=== PATIENT | male | born 1940 | race Caucasian/White ===

== ENCOUNTER → 2017-07-01 09:38 | Outpatient (CLI) | payer MEDICARE, SELFPAY ==
[2017-07-01 10:18] LABS: Basophils % 0.4 % (0.1-2.0); Eosinophils % 0.9 % (0.1-12.0); Hematocrit 45.9 % (42.0-52.0); Hemoglobin 15.4 g/dL (14.1-18.0); Lymphocytes # 1.2 K/mm3 (0.7-4.5); Lymphocytes % 27.8 K/mm3 (10-50); Mean Corpuscular HGB Conc 33.6 g/dL (31.8-35.4); Mean Corpuscular Hemoglobin 31.6 pg (27.0-31.2); Mean Corpuscular Volume 94.1 fl (80-94); Mean Platelet Volume 7.4 fl (7.4-10.4); Monocytes # 0.3 K/mm3 (0.1-1.0); Monocytes % 7.2 % (1.7-9.3); Neutrophils # 2.7 K/mm3 (1.8-7.8); Neutrophils % 63.7 % (37.0-80.0); Platelet Count 131 K/mm3 (142-424); Red Blood Count 4.88 M/mm3 (4.60-6.20); White Blood Count 4.2 K/mm3 (4.8-10.8)
[2017-07-01 11:46] LABS: Alanine Aminotransferase 25 U/L (12-78); Albumin Level 3.8 gm/dL (3.4-5.0); Albumin/Globulin Ratio 1.2 (1.1-1.8); Alkaline Phosphatase 88 U/L (46-116); Anion Gap 1.2 mEq/L (5-15); Bilirubin,Total 0.5 mg/dL (0.2-1.0); Blood Urea Nitrogen 22 mg/dL (7-18); Calcium 8.8 mg/dL (8.5-10.1); Carbon Dioxide 27 mmol/L (21.0-32.0); Chloride 113 mmol/L (98-107); Estimated Glomerular Filt Rate 65 ml/min (>60); GFR (African American) 79 ML/MIN (>60); Globulin 3.2 gm/dl (1.3-3.2); Glucose 86 mg/dL (74-106); Sodium 137 mmol/L (136-145)
[2017-07-01 11:51] LABS: Aspartate Amino Transferase 17 U/L (15-37); Potassium 4.2 mmoL/L (3.5-5.1)
== END ==
PROVIDERS: PCP Internal Medicine; Visit Provider Internal Medicine
DX: C43.9 Malignant melanoma of skin, unspecified (principal)
CPT/HCPCS: 36415; 80053; 85025

== ENCOUNTER → 2017-08-20 11:56 | Outpatient (CLI) | payer MEDICARE, SELFPAY ==
[2017-08-21 15:36] LABS: PSA, Free 1.05 ng/mL; Prostate Specific Ag 7.3 ng/mL (0.0-4.0)
== END ==
PROVIDERS: PCP Family Medicine; Visit Provider Urology
DX: R97.20 Elevated prostate specific antigen [PSA] (principal)
CPT/HCPCS: 36415; 84153; 84154

== ENCOUNTER → 2017-08-26 12:45 | Outpatient (CLI) | payer MEDICARE, SELFPAY ==
[2017-08-26 13:10] LABS: Basophils % 0.4 % (0.1-2.0); Eosinophils % 0.7 % (0.1-12.0); Hemoglobin 14.2 g/dL (14.1-18.0); Lymphocytes # 1.4 K/mm3 (0.7-4.5); Lymphocytes % 34.2 K/mm3 (10-50); Mean Corpuscular HGB Conc 32.9 g/dL (31.8-35.4); Mean Corpuscular Hemoglobin 31.3 pg (27.0-31.2); Mean Corpuscular Volume 95.2 fl (80-94); Mean Platelet Volume 7.7 fl (7.4-10.4); Monocytes # 0.3 K/mm3 (0.1-1.0); Monocytes % 6.9 % (1.7-9.3); Neutrophils # 2.3 K/mm3 (1.8-7.8); Neutrophils % 57.7 % (37.0-80.0); Platelet Count 144 K/mm3 (142-424); Red Blood Count 4.52 M/mm3 (4.60-6.20); Red Cell Distribution Width 14.5 % (11.5-17.5)
[2017-08-26 13:31] LABS: Alanine Aminotransferase 27 U/L (12-78); Albumin Level 3.6 gm/dL (3.4-5.0); Alkaline Phosphatase 125 U/L (46-116); Anion Gap 9.5 mEq/L (5-15); Aspartate Amino Transferase 22 U/L (15-37); Bilirubin,Total 0.4 mg/dL (0.2-1.0); Blood Urea Nitrogen 19 mg/dL (7-18); Calcium 8.7 mg/dL (8.5-10.1); Carbon Dioxide 28 mmol/L (21.0-32.0); Chloride 107 mmol/L (98-107); Creatinine,Serum 0.94 mg/dL (0.70-1.30); Estimated Glomerular Filt Rate 78 ml/min (>60); GFR (African American) 95 ML/MIN (>60); Globulin 3.6 gm/dl (1.3-3.2); Glucose 110 mg/dL (74-106); Potassium 4.5 mmoL/L (3.5-5.1); Sodium 140 mmol/L (136-145); Total Protein,Serum 7.2 gm/dL (6.4-8.2)
== END ==
PROVIDERS: Visit Provider Nurse Practitioner
DX: C43.9 Malignant melanoma of skin, unspecified (principal)
CPT/HCPCS: 36415; 80053; 85025

== ENCOUNTER → 2017-09-16 09:25 | Outpatient (CLI) | payer MEDICARE, SELFPAY ==
[2017-09-16 10:12] LABS: Alanine Aminotransferase 26 U/L (12-78); Albumin Level 3.5 gm/dL (3.4-5.0); Alkaline Phosphatase 116 U/L (46-116); Anion Gap 10.4 mEq/L (5-15); Aspartate Amino Transferase 25 U/L (15-37); Bilirubin,Total 0.4 mg/dL (0.2-1.0); Blood Urea Nitrogen 19 mg/dL (7-18); Calcium 9.2 mg/dL (8.5-10.1); Carbon Dioxide 28 mmol/L (21.0-32.0); Chloride 111 mmol/L (98-107); Creatinine,Serum 0.99 mg/dL (0.70-1.30); Estimated Glomerular Filt Rate 74 ml/min (>60); GFR (African American) 89 ML/MIN (>60); Globulin 3.6 gm/dl (1.3-3.2); Glucose 99 mg/dL (74-106); Potassium 4.4 mmoL/L (3.5-5.1); Sodium 145 mmol/L (136-145); Total Protein,Serum 7.1 gm/dL (6.4-8.2)
[2017-09-16 10:46] LABS: Basophils % 0.1 % (0.1-2.0); Eosinophils % 0.8 % (0.1-12.0); Hematocrit 40.9 % (42.0-52.0); Hemoglobin 13.4 g/dL (14.1-18.0); Lymphocytes # 0.9 K/mm3 (0.7-4.5); Lymphocytes % 29.4 K/mm3 (10-50); Mean Corpuscular HGB Conc 32.8 g/dL (31.8-35.4); Mean Corpuscular Hemoglobin 31.9 pg (27.0-31.2); Mean Corpuscular Volume 97.3 fl (80-94); Mean Platelet Volume 7.5 fl (7.4-10.4); Monocytes # 0.2 K/mm3 (0.1-1.0); Monocytes % 7.5 % (1.7-9.3); Neutrophils # 1.9 K/mm3 (1.8-7.8); Neutrophils % 62.2 % (37.0-80.0); Platelet Count 116 K/mm3 (142-424); Red Blood Count 4.21 M/mm3 (4.60-6.20); Red Cell Distribution Width 14.7 % (11.5-17.5); White Blood Count 3.1 K/mm3 (4.8-10.8)
== END ==
PROVIDERS: Visit Provider Internal Medicine
DX: C43.9 Malignant melanoma of skin, unspecified (principal)
CPT/HCPCS: 36415; 80053; 85025

== ENCOUNTER → 2017-10-12 09:10 | Outpatient (CLI) | payer MEDICARE, SELFPAY ==
[2017-10-12 09:39] LABS: Basophils % 0.1 % (0.1-2.0); Eosinophils % 0.6 % (0.1-12.0); Hematocrit 40.3 % (42.0-52.0); Hemoglobin 13.4 g/dL (14.1-18.0); Lymphocytes # 0.9 K/mm3 (0.7-4.5); Lymphocytes % 35.6 K/mm3 (10-50); Mean Corpuscular HGB Conc 33.3 g/dL (31.8-35.4); Mean Corpuscular Hemoglobin 31.6 pg (27.0-31.2); Mean Corpuscular Volume 94.8 fl (80-94); Mean Platelet Volume 7.6 fl (7.4-10.4); Monocytes # 0.2 K/mm3 (0.1-1.0); Monocytes % 10.1 % (1.7-9.3); Neutrophils # 1.3 K/mm3 (1.8-7.8); Neutrophils % 53.5 % (37.0-80.0); Platelet Count 90 K/mm3 (142-424); Red Blood Count 4.25 M/mm3 (4.60-6.20); Red Cell Distribution Width 14.5 % (11.5-17.5); White Blood Count 2.4 K/mm3 (4.8-10.8)
[2017-10-12 10:37] LABS: Alanine Aminotransferase 28 U/L (12-78); Albumin Level 3.7 gm/dL (3.4-5.0); Albumin/Globulin Ratio 1.2 (1.1-1.8); Alkaline Phosphatase 123 U/L (46-116); Anion Gap 11.3 mEq/L (5-15); Aspartate Amino Transferase 28 U/L (15-37); Bilirubin,Total 0.6 mg/dL (0.2-1.0); Blood Urea Nitrogen 19 mg/dL (7-18); Carbon Dioxide 28 mmol/L (21.0-32.0); Chloride 109 mmol/L (98-107); Creatinine,Serum 1.01 mg/dL (0.70-1.30); Estimated Glomerular Filt Rate 72 ml/min (>60); GFR (African American) 87 ML/MIN (>60); Globulin 3.1 gm/dl (1.3-3.2); Glucose 99 mg/dL (74-106); Potassium 4.3 mmoL/L (3.5-5.1); Sodium 144 mmol/L (136-145); Total Protein,Serum 6.8 gm/dL (6.4-8.2)
== END ==
PROVIDERS: Visit Provider Internal Medicine
DX: C43.9 Malignant melanoma of skin, unspecified (principal)
CPT/HCPCS: 36415; 80053; 85025

== ENCOUNTER → 2017-11-16 09:49 | Outpatient (CLI) | payer MEDICARE, SELFPAY ==
[2017-11-16 10:36] LABS: Basophils % 0.4 % (0.1-2.0); Hematocrit 42.1 % (42.0-52.0); Hemoglobin 13.6 g/dL (14.1-18.0); Lymphocytes # 1.2 K/mm3 (0.7-4.5); Lymphocytes % 34.9 K/mm3 (10-50); Mean Corpuscular HGB Conc 32.3 g/dL (31.8-35.4); Mean Corpuscular Hemoglobin 30.4 pg (27.0-31.2); Mean Corpuscular Volume 94.3 fl (80-94); Mean Platelet Volume 7.3 fl (7.4-10.4); Monocytes # 0.3 K/mm3 (0.1-1.0); Monocytes % 8.3 % (1.7-9.3); Neutrophils # 1.9 K/mm3 (1.8-7.8); Neutrophils % 55.5 % (37.0-80.0); Platelet Count 127 K/mm3 (142-424); Red Blood Count 4.46 M/mm3 (4.60-6.20); Red Cell Distribution Width 14.3 % (11.5-17.5); White Blood Count 3.5 K/mm3 (4.8-10.8)
[2017-11-16 14:00] LABS: Alanine Aminotransferase 24 U/L (12-78); Albumin Level 3.7 gm/dL (3.4-5.0); Albumin/Globulin Ratio 1.2 (1.1-1.8); Alkaline Phosphatase 135 U/L (46-116); Aspartate Amino Transferase 26 U/L (15-37); Bilirubin,Total 0.6 mg/dL (0.2-1.0); Blood Urea Nitrogen 26 mg/dL (7-18); Calcium 9.3 mg/dL (8.5-10.1); Carbon Dioxide 30 mmol/L (21.0-32.0); Chloride 107 mmol/L (98-107); Creatinine,Serum 1.06 mg/dL (0.70-1.30); Estimated Glomerular Filt Rate 68 ml/min (>60); GFR (African American) 82 ML/MIN (>60); Globulin 3.1 gm/dl (1.3-3.2); Glucose 90 mg/dL (74-106); Sodium 140 mmol/L (136-145); Total Protein,Serum 6.8 gm/dL (6.4-8.2)
== END ==
PROVIDERS: Visit Provider Internal Medicine
DX: C43.9 Malignant melanoma of skin, unspecified (principal)
CPT/HCPCS: 36415; 80053; 85025

== ENCOUNTER 2018-02-25 22:50 | Observation (INO) ==
[2018-02-25 23:38] LABS: Basophils % 0.2 % (0.1-2.0); Eosinophils % 0.7 % (0.1-12.0); Hematocrit 42.1 % (42.0-52.0); Lymphocytes # 0.8 K/mm3 (0.7-4.5); Lymphocytes % 20.2 K/mm3 (10-50); Mean Corpuscular HGB Conc 33.3 g/dL (31.8-35.4); Mean Corpuscular Hemoglobin 32.3 pg (27.0-31.2); Mean Corpuscular Volume 96.9 fl (80-94); Mean Platelet Volume 6.8 fl (7.4-10.4); Monocytes # 0.2 K/mm3 (0.1-1.0); Monocytes % 5.4 % (1.7-9.3); Neutrophils # 2.9 K/mm3 (1.8-7.8); Neutrophils % 73.6 % (37.0-80.0); Platelet Count 101 K/mm3 (142-424); Red Blood Count 4.34 M/mm3 (4.60-6.20); Red Cell Distribution Width 14.1 % (11.5-17.5); White Blood Count 3.9 K/mm3 (4.8-10.8)
[2018-02-25 23:47] LABS: Albumin Level 3.7 gm/dL (3.4-5.0); Albumin/Globulin Ratio 1.2 (1.1-1.8); Anion Gap 7.7 mEq/L (5-15); Bilirubin,Total 1.2 mg/dL (0.2-1.0); Potassium 3.7 mmoL/L (3.5-5.1); Total Protein,Serum 6.7 gm/dL (6.4-8.2)
--- NOTE | 2018-02-26 00:47 | Emergency Department Note ---
ED Disposition Clinical Impression: Metastatic melanoma, Brain metastases Disposition: Admitted as Observation Condition on Discharge: Serious Instructions: DI for Altered Mental Status Referrals: Sergo Ridley MD [Primary Care Provider] - - Critical Care Critical Care Time: No Attestation: On 02/25/18, the high probability of a clinically significant, sudden or life threatening deterioration of the following system(s) required my full and direct attention, intervention and personal management. The time I documented below is in addition to time spent performing reported procedures but includes the following listed in this critical care notation. Medical Decision Making - Medical Records Medical records reviewed: Yes: I reviewed the patient's medical records. - Ronnie Inquiry Pt receiving controlled substance: No Vital Signs: 02/25/18 22:52 Temperature 97.7 F Temperature Source Oral Pulse Rate [Right Radial] 52 L Respiratory Rate 15 Blood Pressure [Right Arm] 129/71 Blood Pressure Mean [Right Arm] 90 Blood Pressure Source [Right Arm] Automatic Cuff Blood Pressure Position [Right Arm] Sitting 02 Sat by Pulse Oximetry 95 Oxygen Delivery Method Room Air - Lab Data Lab results reviewed: Yes: I reviewed the patient's lab results. Lab Results 02/25/18 23:25: WBC 3.9 L, RBC 4.34 L, Hgb 14.0 L, Hct 42.1, MCV 96.9 H, MCH 32.3 H, MCHC 33.3, RDW 14.1, Plt Count 101 L, MPV 6.8 L, Neut % (Auto) 73.6, Lymph % (Auto) 20.2, [place] % (Auto) 5.4, Eos % (Auto) 0.7, Baso % (Auto) 0.2, Neut # (Auto) 2.9, Lymph # (Auto) 0.8, [place] # (Auto) 0.2, Eos # (Auto) 0.0, Baso # (Auto) 0.0 02/25/18 23:25: Sodium 142, Potassium 3.7, Chloride 108 H, Carbon Dioxide 30, Anion Gap 7.7, BUN 15, Creatinine 0.88, Estimated Creat Clear 68, Estimated GFR 84, Est GFR ( Amer) 102, Glucose 111 H, Calcium 9.0, Total Bilirubin 1.2 H, AST 32, ALT 35, Alkaline Phosphatase 101, Total Protein 6.7, Albumin 3.7, Globulin 3.0, Albumin/Globulin Ratio 1.2, Amylase 32, Lipase 74 Result diagrams: 02/25/18 23:25 02/25/18 23:25 Orders (Tests/Meds): ED MEDICATIONS Generic Name Dose Route Start Last Admin Trade Name Freq PRN Reason Stop Dose Admin Lorazepam 1 mg 02/26/18 01:06 02/26/18 01:12 Ativan 2mg/Ml Vial IV 03/28/18 01:05 1 mg Q4HP PRN Administration Agitation Discontinued Medications Generic Name Dose Route Start Last Admin Trade Name Freq PRN Reason Stop Dose Admin Dexamethasone Sodium Phosphate 10 mg 02/26/18 01:06 02/26/18 01:12 Decadron 4mg/Ml 5ml Mdv IV 02/26/18 01:07 10 mg ONCE ONE Administration Promethazine HCl 12.5 mg 02/25/18 23:12 02/25/18 23:26 Phenergan 25mg/Ml 1ml Vial IV 02/25/18 23:13 12.5 mg ONCE ONE Administration Sodium Chloride 25 ml 02/25/18 23:12 02/25/18 23:25 Sod Chlor 0.9% 25ml Bag IV 02/25/18 23:13 25 ml ONCE ONE Administration ORDERS Category Date Time Status CT head/brain wo con Stat Cat Scan 02/25/18 23:13 Taken XR chest AP Stat Exams 02/25/18 23:12 Taken XR pelvis 1-2V Stat Exams 02/25/18 23:13 Taken EKG Request [ECG Request by /[place]] Stat Y 02/25/18 23:38 Ordered - Radiology Data #1 Image(s): Chest, Pelvis Image Reviewed: Yes I reviewed the patient's radiology image Preliminary Findings: No Fracture Seen - CT Data CT Scan: Head Time Received: 01:[address] Reviewed: Yes: I have viewed the radiologist's interpretation Preliminary Findings: Abnormal Findings Narrative: bleeding mult mets with vagogenic changes in brain - ECG Data Tracing #1 I reviewed this ECG and interpreted as documented below: Normal Sinus Rhythm: Yes Ischemic changes: non-specific ST-T wave changes Altered Mental Status HPI - General Chief Complaint: Altered Mental Status Stated Complaint: nausea/weakness Time Seen by Provider: 02/25/18 23:15 Mode of Arrival: EMS Source of Information: Patient, Relative, EMS, Medical Record Limitations: No Limitations Description of Symptoms (Recalled from ER Triage Doc. by RN): Family called EMS r/t increased confusion, and falls. EMS reports pt was here last week and possible diagnosis of brain cancer. Pt complaining of nausea and abdominal pain. - History of Present Illness HPI narrative: pt with recent dx of metastatic melanoma to brain with progressive sx with inc confusions and dec ambulation with falls over the last 24 hrs - family and pt wish comfort care at this time and possible hospice consult complaint: altered mental status Onset (ago): day(s) Timing confirmed by: family member Severity: severe Consistency of symptoms: getting worse Context: cancer Associated symptoms: denies other symptoms - Related Data Home Medications Medication Instructions Recorded Confirmed tamsulosin 0.4 mg capsule 0.4 mg PO DAILY 06/15/17 02/22/18 dabrafenib 75 mg capsule 75 mg PO DAILY cap 08/20/17 02/22/18 trametinib 2 mg tablet 2 mg PO DAILY 08/20/17 02/22/18 Promethazine HCl [Phenergan 25mg 25 mg PO NEEDED PRN 02/25/18 02/25/18 tab] Tramadol HCl [Ultram 50mg 50 mg PO NEEDED PRN 02/25/18 02/25/18 tablet] Allergies Allergy/AdvReac Type Severity Reaction Status Date / Time No Known Allergies Allergy Verified 12/30/17 09:19 [facility] History I have reviewed the patient's past medical history: Yes Medical History: Reports:: Cancer (leukemia, skin ca), Depression Denies:: Diabetes Mellitus Type 1, Diabetes Mellitus Type 2, MRSA Other Medical History: Reports: Chemotherapy Other Surgeries: Yes: Hernia Repair, Other Amputation: No Fractures: No - Social History Smoking Status: Current every day smoker Tobacco Type: cigarettes # Packs/Day (cigarettes): 1 Alcohol Intake: never Substance Use Type: denies use Occupational Status: retired Housing: house Household Members: family - Psychiatric History Expresses thoughts of harming self/others: None Suicide Plan Description: No Plan Pschychiatric History:: Reports:: Depression Family Hx:: No significant family history ROS Obtained: Yes All systems reviewed & no additional complaints - Constitutional Constitutional: Denies fever(s), Reports frequent falls - Eyes Eyes: Denies change in vision - ENT Ears, Nose, Mouth, and Throat: Denies sore throat - Cardiovascular Cardiovascular: Denies chest pain at rest - Respiratory Respiratory: No cough - Gastrointestinal Gastrointestingal: Denies: abdominal pain - Genitourinary Male Genitourinary: Denies hematuria - Musculoskeletal Musculoskeletal: Denies joint pain - Integumentary/Breasts Skin/Breast: Denies rash - Neurologic Neurologic: Reports confusion, Reports frequent falls, Denies seizure-like activity Physical Exam - General General appearance: in no apparent distress - Head Head exam: normocephalic - Eye Eye exam: Present: PERRL, EOMI. Absent: scleral icterus - ENT ENT exam: Present: mucous membranes dry - Neck Neck exam: Present: trachea midline - Respiratory Respiratory exam: Absent: respiratory distress - Cardiovascular Cardiovascular exam: Present: regular rate - Abdominal Exam Abdominal exam: Present: soft - Extremities Exam Extremities exam: Present: full ROM - Neurological Exam Neurological exam: Present: CN II-XII intact, other (awake and oriented x 2 with agitated confusion ) - Psychiatric Psychiatric exam: Present: agitated - Skin Skin exam: Absent: rash
--- NOTE | 2018-02-26 05:57 | History & Physical Report ---
*Admission Date: 02/26/18 *Chief complaint: Confusion, weakness, falls *History of present illness: 77-year-old male diagnosed with metastatic melanoma approximately 1 year ago and has been undergoing treatment through local oncology presented to the emergency department for the second time this week after experiencing additional falls at home with new onset of increased confusion. Family felt like they were unable to care for the patient. At his ER visit earlier in the week CT scan showed new metastatic disease in the brain. CT scan showed multiple brain metastases. On return to the emergency department yesterday evening repeat scan once again showed the meds but this time with vasogenic changes consistent with edema and/or hemorrhage. Patient was unable to be cared for by family. Family had contacted my office yesterday and a hospice referral had been made. Family is not present at bedside this morning so I do not know if they were ever contacted by hospice. Patient has been admitted for palliative care and hospice consultation. Patient himself is able to indicate he has some pain in his tailbone. He has been combative throughout the night and has required restraints. [facility] History I have reviewed the patient's past medical history: Yes Medical History: Reports:: Cancer (leukemia, metastatic melanoma), Depression Denies:: Diabetes Mellitus Type 1, Diabetes Mellitus Type 2, MRSA Other Medical History: Reports: Chemotherapy Other Surgeries: Yes: Hernia Repair, Other Amputation: No Fractures: No - *Social History Smoking Status: Current every day smoker Tobacco Type: cigarettes # Packs/Day (cigarettes): 1 Alcohol Intake: never Substance Use Type: denies use Occupational Status: retired Housing: house Household Members: family - Psychiatric History Expresses thoughts of harming self/others: None Suicide Plan Description: No Plan Pschychiatric History:: Reports:: Depression *Family Hx:: No significant family history Review of Systems - Review of Systems Review of systems:: unable to obtain - *Neurologic Reports confusion, Reports frequent falls, Denies seizure-like activity Meds Home Medications Medication Instructions Recorded Confirmed Type tamsulosin 0.4 mg capsule 0.4 mg PO DAILY 06/15/17 02/22/18 History dabrafenib 75 mg capsule 75 mg PO DAILY cap 08/20/17 02/22/18 History trametinib 2 mg tablet 2 mg PO DAILY 08/20/17 02/22/18 History Promethazine HCl [Phenergan 25mg 25 mg PO NEEDED PRN 02/25/18 02/25/18 Histo ry tab] Tramadol HCl [Ultram 50mg 50 mg PO NEEDED PRN 02/25/18 02/25/18 History tablet] Allergies Allergy/AdvReac Type Severity Reaction Status Date / Time No Known Allergies Allergy Verified 12/30/17 09:19 Exam Vital signs and Labs for Last 24 Hours: Temp Pulse Resp BP Pulse Ox 0 F L 70 92 L 02/26/18 02:18 02/26/18 03:30 02/26/18 03:30 02/26/18 02:18 02/26/18 03:30 Laboratory Results - last 24 hr 02/25/18 23:25: WBC 3.9 L, RBC 4.34 L, Hgb 14.0 L, Hct 42.1, MCV 96.9 H, MCH 32.3 H, MCHC 33.3, RDW 14.1, Plt Count 101 L, MPV 6.8 L, Neut % (Auto) 73.6, Lymph % (Auto) 20.2, [place] % (Auto) 5.4, Eos % (Auto) 0.7, Baso % (Auto) 0.2, Neut # (Auto) 2.9, Lymph # (Auto) 0.8, [place] # (Auto) 0.2, Eos # (Auto) 0.0, Baso # (Auto) 0.0 02/25/18 23:25: Sodium 142, Potassium 3.7, Chloride 108 H, Carbon Dioxide 30, Anion Gap 7.7, BUN 15, Creatinine 0.88, Estimated Creat Clear 68, Estimated GFR 84, Est GFR ( Amer) 102, Glucose 111 H, Calcium 9.0, Total Bilirubin 1.2 H, AST 32, ALT 35, Alkaline Phosphatase 101, Total Protein 6.7, Albumin 3.7, Globulin 3.0, Albumin/Globulin Ratio 1.2, Amylase 32, Lipase 74 I & O for Last 24 hours: Intake & Output 02/23/18 02/24/18 02/25/18 02/26/18 11:59 11:59 11:59 11:59 Weight 168 lb Narrative: Patient is awake. He answers questions, sometimes giving appropriate answers sometimes not. He is oriented to person. Oropharynx is moist. Neck is without lymphadenopathy. Lungs are clear to auscultation. Heart has a regular rate and rhythm. Abdomen is soft and nontender. Neurologic exam reveals intact motor function in all extremities. Intact sensation. Strength assessment could not be performed as patient could not cooperate. Cranial nerves appear grossly intact Assessment and Plan (1) Brain metastases Current visit: Yes Status: Acute Category: Medical Code(s): C79.31 - Secondary malignant neoplasm of brain (2) Metastatic melanoma Current visit: Yes Status: Acute Category: Medical Code(s): C79.9 - Secondary malignant neoplasm of unspecified site (3) Falls Current visit: No Status: Acute Qualifiers: Encounter type: initial encounter Qualified Code(s): W19.XXXA - Unspecified fall, initial encounter Category: Medical Code(s): W19.XXXA - Unspecified fall, initial encounter - Assessment and plan all Dx Assessment and Plan for all problems:: 1. Hospice consultation 2. Morphine for pain. Haldol for agitation. Patient was given a dose of dexamethasone for his brain metastases. Family has made the patient a DO NOT RESUSCITATE. He is a candidate for the hospice care center in my opinion
--- NOTE | 2018-02-26 07:42 | Pharmacy Consult Notes ---
[facility] Pharmacy VTE Monitoring - Patient Demographics Admission date: 02/26/18 Report Date: 02/26/18 Time: 07:42 Allergies/Adverse Reactions: Patient Allergies No Known Allergies Allergy (Verified 12/30/17 09:19) Height: 1.8 m Weight: 76.204 kg Patient Problems: Current Active Problems Metastatic melanoma (Acute) Brain metastases (Acute) - VTE Risk Labs: VTE Related Lab Results Hgb 14.0 g/dL (14.1-18.0) L 02/25/18 23:25 Hct 42.1 % (42.0-52.0) 02/25/18 23:25 Plt Count 101 K/mm3 (142-424) L 02/25/18 23:25 BUN 15 mg/dL (7-18) 02/25/18 23:25 Creatinine 0.88 mg/dL (0.70-1.30) 02/25/18 23:25 Estimated Creat Clear 68 mL/min (0-300) 02/25/18 23:25 Was VTE Risk Assessment Performed: Yes VTE Risk Level: Moderate Risk Clinical Trial Participant: No - Prophylaxis VTE Prophylaxis Ordered?: Yes Types of VTE Prophylaxis: TEDS Knee High
[2018-02-26 11:58] LABS: Microscopic, Urine URINE MICROSCOPIC (MICROSCOPIC)
[2018-02-26 12:03] LABS: Bilirubin,Urine Negative (Negative); Blood, Urine 3+ (Negative); Glucose,Urine (UA) Negative (Negative); Ketones,Urine 1+ (Negative); Leukocyte Esterase,Urine TRACE (Negative); Protein,Urine TRACE (Negative); Specific Gravity, Urine 1.025 (1.005-1.030)
[2018-02-26 12:05] LABS: Color,Urine ORANGE (Yellow)
[2018-02-26 12:06] LABS: Appearance,Urine TURBID (Clear)
[2018-02-26 12:33] LABS: Bacteria,Urine Trace /lpf; RBC,Urine TNTC #/hpf (0-3); Squamous Epithelial Cell,Urine Occasional #/hpf (0-5); WBC,Urine Occasional #/hpf (0-3)
--- NOTE | 2018-02-26 14:44 | Discharge Summary ---
General - General Admission date:: 02/26/18 Discharge date: 02/26/18 HPI HPI: 77-year-old male diagnosed with metastatic melanoma approximately 1 year ago and has been undergoing treatment through local oncology presented to the emergency department for the second time this week after experiencing additional falls at home with new onset of increased confusion. Family felt like they were unable to care for the patient. At his ER visit earlier in the week CT scan showed new metastatic disease in the brain. CT scan showed multiple brain metastases. On return to the emergency department yesterday evening repeat scan once again showed the meds but this time with vasogenic changes consistent with edema and/or hemorrhage. Patient was unable to be cared for by family. Family had contacted my office yesterday and a hospice referral had been made. Family is not present at bedside this morning so I do not know if they were ever contacted by hospice. Patient has been admitted for palliative care and hospice consultation. Patient himself is able to indicate he has some pain in his tailbone. He has been combative throughout the night and has required restraints. Hospital Course Hospital Course: Patient was admitted. HE was ordered morphine for pain and haldol for agitation. Hospice was consulted. He was accepted to the hospice care center. He will be discharged to the Hospice Care Center Objective Vital signs: Temp Pulse Resp BP Pulse Ox 98.0 F 57 L 18 116/51 92 L 02/26/18 08:00 02/26/18 08:00 02/26/18 08:00 02/26/18 08:00 02/26/18 08:00 Results Labs on day of discharge: Labs from last 24 hours 02/26/18 02/25/18 02/25/18 11:45 23:25 23:25 WBC 3.9 L RBC 4.34 L Hgb 14.0 L Hct 42.1 MCV 96.9 H MCH 32.3 H MCHC 33.3 RDW 14.1 Plt Count 101 L MPV 6.8 L Neut % (Auto) 73.6 Lymph % (Auto) 20.2 [place] % (Auto) 5.4 Eos % (Auto) 0.7 Baso % (Auto) 0.2 Neut # (Auto) 2.9 Lymph # (Auto) 0.8 [place] # (Auto) 0.2 Eos # (Auto) 0.0 Baso # (Auto) 0.0 Sodium 142 Potassium 3.7 Chloride 108 H Carbon Dioxide 30 Anion Gap 7.7 BUN 15 Creatinine 0.88 Estimated Creat Clear 68 Estimated GFR 84 Est GFR ( Amer) 102 Glucose 111 H Calcium 9.0 Total Bilirubin 1.2 H AST 32 ALT 35 Alkaline Phosphatase 101 Total Protein 6.7 Albumin 3.7 Globulin 3.0 Albumin/Globulin Ratio 1.2 Amylase 32 Lipase 74 Urine Color [place] Urine Appearance Turbid Urine pH 6.0 Ur Specific [place] 1.025 Urine Protein Trace Urine Glucose (UA) Negative Urine Ketones 1+ Urine Blood 3+ Urine Nitrate Negative Urine Bilirubin Negative Urine Urobilinogen 1.0 Ur Leukocyte Esterase Trace Urine RBC Tntc Urine WBC Occasional Ur Squamous Epith Cells Occasional Urine Bacteria Trace DS: Diagnosis - Discharge Diagnosis (1) Brain metastases Status: Acute (2) Metastatic melanoma Status: Acute (3) Falls Status: Acute Discharge Plan - Patient Discharge Instructions ACTIVITY: Continue current activity DIET: continue same diet - Follow up Plan Disposition: Xfer Other Home Medications: Home Medications Medication Instructions Recorded Confirmed Type dabrafenib 75 mg capsule 75 mg PO DAILY cap 08/20/17 02/26/18 History trametinib 2 mg tablet 2 mg PO DAILY 08/20/17 02/26/18 History Promethazine HCl [Phenergan 25mg 25 mg PO NEEDED PRN 02/25/18 02/25/18 History tab] Tramadol HCl [Ultram 50mg 50 mg PO NEEDED PRN 02/25/18 02/25/18 History tablet] Tamsulosin HCl [Flomax 0.4mg 0.4 mg PO DAILY 02/26/18 02/26/18 History capsule] Prescriptions/Medication Reconciliation: Continue trametinib 2 mg tablet 2 mg PO DAILY dabrafenib 75 mg capsule 75 mg PO DAILY cap Tramadol HCl [Ultram 50mg tablet] 50 mg PO NEEDED PRN PRN Reason: pain Promethazine HCl [Phenergan 25mg tab] 25 mg PO NEEDED PRN PRN Reason: Nausea And Vomiting Tamsulosin HCl [Flomax 0.4mg capsule] 0.4 mg PO DAILY
== END 2018-02-26 15:49 | disposition hospice, inpatient (51) ==
LOC: ER 22:50 → 2ND 22:50
PROVIDERS: ADMIT Emergency Medicine; ATTEND Family Medicine
CPT/HCPCS: 70450; 71010; 71045; 72170; 80053; 81001; 82150; 83690; 85025; 93005; 96365; 96366; 96375; 99284; G0378